=== PATIENT | female | born 1940 | race Caucasian/White ===

== ENCOUNTER 2021-08-06 09:22 | Inpatient (IN) ==
[2021-08-06] MEDS ORDERED: DILTIAZEM 50 MG/10 ML VIAL IV STA (10:14)
[2021-08-06 10:27] LABS: ABG Base Excess -2.3 MMOL/L (-2.5-2.5); ABG HCO3 22.5 MMOL/L (20-26); ABG Oxygen Saturation 97.3 % (95-100); ABG PCO2 34.7 MM HG (35-48); ABG PH 7.404 (7.35-7.45); ABG PO2 92.6 MM HG (80-95); ABG TCO2 18.9 MMOL/L (23-27)
[2021-08-06] MEDS: DILTIAZEM INJ 100 MG in SODIUM CHLORIDE 0.9% 100 ML IV SCH ×2 (10:29→19:42)
[2021-08-06] MEDS ORDERED: SODIUM CHLORIDE 0.9% 1,000 ML IV STA (10:32)
[2021-08-06 10:40] LABS: Basophils % 0.3 % (0.0-0.8); Eosinophils # 0.1 10*3/uL (0.0-0.87); Eosinophils % 0.6 % (0.00-10.9); Hematocrit 40.4 VOL% (35.7-47.0); Hemoglobin 13.1 GM/DL (12.0-16.0); Immature Granulocytes % 0.7 %; Immature Granulocytes Absolute 0.08 #; Lymphocytes # 3.3 10*3/uL (1.4-4.0); Lymphocytes % 30.7 % (21.3-54.2); Mean Corpuscular HGB Conc 32.4 GM/DL (32-36); Mean Corpuscular Volume 92.2 FL (87-102); Mean Platelet Volume 9.2 FL (9.6-12.0); Monocytes % 11.2 % (1.7-12.7); Neutrophils % 56.5 % (38.7-73.9); Platelet Count 491 T/CUMM (130-400); Red Blood Count 4.38 MC/CUMM (3.8-5.5); Red Cell Distribution Width 15.5 % (9.3-17.3); White Blood Count 10.9 T/CUMM (4-12)
[2021-08-06 11:02] LABS: Albumin 3.8 G/DL (3.4-5.0); Bilirubin,Total 0.5 MG/DL (0.20-1.00); Osmolality,Calculated 278.7 MOS/KG (273-304); Potassium 4.2 MMOL/L (3.5-5.1); Total Protein 6.9 G/DL (6.4-8.2)
[2021-08-06] MEDS ORDERED: METOPROLOL TARTRATE 5 MG/5 ML VIAL IV ONE (11:12)
[2021-08-06] MEDS ORDERED: PIPERACILLIN/TAZOBACTAM 3,375 MG in SODIUM CHLORIDE 0.9% 100 ML IV STA ×2 (11:16→11:17)
[2021-08-06] MEDS ORDERED: FUROSEMIDE 40 MG/4 ML VIAL IV STA (11:16)
[2021-08-06] MEDS ORDERED: METOPROLOL TARTRATE 5 MG/5 ML VIAL IV STA (11:17)
[2021-08-06] MEDS ORDERED: GLUCAGON 1 MG VIAL IM PRN (11:23)
[2021-08-06] MEDS ORDERED: ONDANSETRON 4 MG/2 ML VIAL IV PRN (11:24)
[2021-08-06] MEDS ORDERED: DEXTROSE 50% 25 GM/50 ML SYRINGE IV PRN (11:27)
[2021-08-06 11:39] LABS: Bilirubin,Urine Negative (Negative); Blood, Urine Negative (Negative); Glucose,Urine (UA) Negative (Negative); Hyaline Casts,Urine 8 /LPF (0-3); Ketones,Urine Negative (Negative); Mucus,Urine Occasional /LPF (Occasional); Nitrite,Urine Negative (Negative); Protein,Urine 100 MG/DL; RBC,Urine <1 /HPF (0-4); Urine Appearance CLEAR (Clear); Urine Color Amber (Yellow); Urine Specific Gravity 1.041 (1.001-1.035); Urine Urobilinogen < 2.0 EU/DL (0.2-1.0)
[2021-08-06 11:57] LABS: Thyroid Stimulating Hormone 4.23 uIU/ml (0.358-3.74)
[2021-08-06] MEDS ORDERED: cefTRIAXone 1,000 MG in SODIUM CHLORIDE 0.9% 100 ML IV SCH (12:00)
[2021-08-06] MEDS: ACETAMINOPHEN 325 MG TABLET PO PRN ×2 (12:14→20:08)
[2021-08-06] MEDS: ENOXAPARIN 100 MG/ML SYRINGE SUBCUT SCH (12:30)
[2021-08-06] MEDS ORDERED: AZITHROMYCIN INJ 500 MG in SODIUM CHLORIDE 0.9% 250 ML IV SCH (13:00)
[2021-08-06] MEDS: FUROSEMIDE 40 MG/4 ML VIAL IV SCH (17:20)
[2021-08-06] MEDS: ZALEPLON 5 MG CAPSULE PO PRN (20:06)
[2021-08-06] MEDS: guaiFENesin 200 MG/10 ML UDCUP PO PRN (20:44)
[2021-08-06] MEDS: PSYLLIUM POWDER 3.7 GM/PACK PO SCH (20:44)
[2021-08-07] MEDS: ACETAMINOPHEN 325 MG TABLET PO PRN ×5 (00:01→21:41)
[2021-08-07] MEDS: guaiFENesin 200 MG/10 ML UDCUP PO PRN ×4 (00:01→23:30)
[2021-08-07] MEDS: DILTIAZEM INJ 100 MG in SODIUM CHLORIDE 0.9% 100 ML IV SCH ×3 (02:30→10:30)
[2021-08-07 04:52] LABS: Basophils % 0.3 % (0.0-0.8); Eosinophils # 0.1 10*3/uL (0.0-0.87); Eosinophils % 0.9 % (0.00-10.9); Hematocrit 38.2 VOL% (35.7-47.0); Hemoglobin 12.2 GM/DL (12.0-16.0); Immature Granulocytes % 0.6 %; Immature Granulocytes Absolute 0.06 #; Lymphocytes # 2.7 10*3/uL (1.4-4.0); Lymphocytes % 28.2 % (21.3-54.2); Mean Corpuscular HGB Conc 31.9 GM/DL (32-36); Mean Corpuscular Volume 94.6 FL (87-102); Mean Platelet Volume 9.2 FL (9.6-12.0); Monocytes % 11.8 % (1.7-12.7); Neutrophils % 58.2 % (38.7-73.9); Platelet Count 431 T/CUMM (130-400); Red Blood Count 4.04 MC/CUMM (3.8-5.5); Red Cell Distribution Width 15.4 % (9.3-17.3); White Blood Count 9.6 T/CUMM (4-12)
[2021-08-07 05:13] LABS: Calcium 8.4 MG/DL (8.5-10.1); Osmolality,Calculated 284.1 MOS/KG (273-304); Potassium 3.3 MMOL/L (3.5-5.1); Risk Ratio 2.98; VLDL Cholesterol 17.8 MG/DL
[2021-08-07] MEDS: FUROSEMIDE 40 MG/4 ML VIAL IV SCH ×2 (07:58→16:55)
[2021-08-07] MEDS ORDERED: PSYLLIUM POWDER 3.7 GM/PACK PO SCH (09:00)
[2021-08-07] MEDS: GABAPENTIN 100 MG CAPSULE PO SCH ×2 (14:50→21:42)
[2021-08-07] MEDS: ENOXAPARIN 100 MG/ML SYRINGE SUBCUT SCH ×3 (14:51→23:30)
[2021-08-07] MEDS: METOPROLOL SUCCINATE XL 25 MG TABLET PO SCH ×2 (14:51→21:42)
[2021-08-07] MEDS: ZALEPLON 5 MG CAPSULE PO PRN (21:42)
[2021-08-07] MEDS: PSYLLIUM POWDER 3.7 GM/PACK PO SCH (21:43)
[2021-08-08] MEDS: ACETAMINOPHEN 325 MG TABLET PO PRN ×3 (03:26→17:02)
[2021-08-08 04:51] LABS: Basophils % 0.5 % (0.0-0.8); Eosinophils # 0.2 10*3/uL (0.0-0.87); Eosinophils % 1.7 % (0.00-10.9); Hematocrit 37.7 VOL% (35.7-47.0); Hemoglobin 11.9 GM/DL (12.0-16.0); Immature Granulocytes % 0.6 %; Immature Granulocytes Absolute 0.05 #; Lymphocytes # 2.6 10*3/uL (1.4-4.0); Lymphocytes % 29.3 % (21.3-54.2); Mean Corpuscular HGB Conc 31.6 GM/DL (32-36); Mean Corpuscular Volume 94.5 FL (87-102); Mean Platelet Volume 8.9 FL (9.6-12.0); Monocytes % 12.4 % (1.7-12.7); Neutrophils % 55.5 % (38.7-73.9); Platelet Count 417 T/CUMM (130-400); Red Blood Count 3.99 MC/CUMM (3.8-5.5); Red Cell Distribution Width 15.4 % (9.3-17.3); White Blood Count 8.8 T/CUMM (4-12)
[2021-08-08 05:05] LABS: Calcium 8.4 MG/DL (8.5-10.1); Osmolality,Calculated 283.1 MOS/KG (273-304); Potassium 3.2 MMOL/L (3.5-5.1)
[2021-08-08] MEDS: DILTIAZEM INJ 100 MG in SODIUM CHLORIDE 0.9% 100 ML IV SCH ×3 (07:31→22:16)
[2021-08-08] MEDS: POTASSIUM CHLORIDE 20 MEQ TABLET PO PRN ×4 (09:16→16:55)
[2021-08-08] MEDS: METOPROLOL SUCCINATE XL 25 MG TABLET PO SCH (09:17)
[2021-08-08] MEDS: GABAPENTIN 100 MG CAPSULE PO SCH ×3 (09:17→21:07)
[2021-08-08] MEDS: FUROSEMIDE 40 MG/4 ML VIAL IV SCH ×2 (10:54→16:55)
[2021-08-08] MEDS: DILTIAZEM 60 MG TABLET PO SCH ×3 (10:55→21:06)
[2021-08-08] MEDS: PSYLLIUM POWDER 3.7 GM/PACK PO SCH (21:05)
[2021-08-08] MEDS: APIXABAN 5 MG TABLET PO SCH (21:06)
[2021-08-08] MEDS: BISOPROLOL 5 MG TABLET PO SCH (21:06)
[2021-08-08] MEDS: guaiFENesin 200 MG/10 ML UDCUP PO PRN (21:10)
[2021-08-08] MEDS: ZALEPLON 5 MG CAPSULE PO PRN (21:17)
[2021-08-09] MEDS: ACETAMINOPHEN 325 MG TABLET PO PRN ×3 (00:30→12:30)
[2021-08-09 06:03] LABS: Basophils % 0.3 % (0.0-0.8); Eosinophils # 0.2 10*3/uL (0.0-0.87); Hematocrit 41.2 VOL% (35.7-47.0); Hemoglobin 12.6 GM/DL (12.0-16.0); Immature Granulocytes % 0.5 %; Immature Granulocytes Absolute 0.04 #; Lymphocytes # 3.2 10*3/uL (1.4-4.0); Mean Corpuscular HGB Conc 30.6 GM/DL (32-36); Mean Corpuscular Volume 96.5 FL (87-102); Mean Platelet Volume 8.9 FL (9.6-12.0); Monocytes % 11.8 % (1.7-12.7); Neutrophils % 48.4 % (38.7-73.9); Platelet Count 436 T/CUMM (130-400); Red Blood Count 4.27 MC/CUMM (3.8-5.5); Red Cell Distribution Width 15.7 % (9.3-17.3); White Blood Count 8.7 T/CUMM (4-12)
[2021-08-09 06:16] LABS: Calcium 8.9 MG/DL (8.5-10.1); Potassium 4.2 MMOL/L (3.5-5.1)
[2021-08-09] MEDS: FUROSEMIDE 40 MG/4 ML VIAL IV SCH ×2 (09:07→15:48)
[2021-08-09] MEDS: BISOPROLOL 5 MG TABLET PO SCH ×2 (09:35→21:26)
[2021-08-09] MEDS: GABAPENTIN 100 MG CAPSULE PO SCH ×3 (09:36→21:26)
[2021-08-09] MEDS: DILTIAZEM CD 120 MG CAPSULE PO SCH ×2 (09:36→21:26)
[2021-08-09] MEDS: APIXABAN 5 MG TABLET PO SCH ×2 (09:36→21:26)
[2021-08-09] MEDS: guaiFENesin 200 MG/10 ML UDCUP PO PRN ×2 (12:32→21:26)
[2021-08-09] MEDS: DILTIAZEM INJ 100 MG in SODIUM CHLORIDE 0.9% 100 ML IV SCH (18:13)
[2021-08-09] MEDS: PSYLLIUM POWDER 3.7 GM/PACK PO SCH (21:25)
[2021-08-09] MEDS: ZALEPLON 5 MG CAPSULE PO PRN (21:30)
[2021-08-10 05:12] LABS: Basophils % 0.6 % (0.0-0.8); Eosinophils # 0.2 10*3/uL (0.0-0.87); Eosinophils % 2.5 % (0.00-10.9); Hematocrit 39.9 VOL% (35.7-47.0); Hemoglobin 12.2 GM/DL (12.0-16.0); Immature Granulocytes % 0.6 %; Immature Granulocytes Absolute 0.04 #; Lymphocytes # 2.8 10*3/uL (1.4-4.0); Lymphocytes % 39.1 % (21.3-54.2); Mean Corpuscular HGB Conc 30.6 GM/DL (32-36); Mean Corpuscular Volume 97.1 FL (87-102); Mean Platelet Volume 8.8 FL (9.6-12.0); Monocytes % 10.9 % (1.7-12.7); Neutrophils % 46.3 % (38.7-73.9); Platelet Count 396 T/CUMM (130-400); Red Blood Count 4.11 MC/CUMM (3.8-5.5); Red Cell Distribution Width 15.4 % (9.3-17.3); White Blood Count 7.1 T/CUMM (4-12)
[2021-08-10 05:45] LABS: Calcium 9.4 MG/DL (8.5-10.1); Osmolality,Calculated 285.1 MOS/KG (273-304); Potassium 4.2 MMOL/L (3.5-5.1)
[2021-08-10] MEDS: ACETAMINOPHEN 325 MG TABLET PO PRN (06:17)
[2021-08-10] MEDS: FUROSEMIDE 40 MG/4 ML VIAL IV SCH (09:14)
[2021-08-10] MEDS: APIXABAN 5 MG TABLET PO SCH (10:00)
[2021-08-10] MEDS: BISOPROLOL 5 MG TABLET PO SCH (10:00)
[2021-08-10] MEDS: GABAPENTIN 100 MG CAPSULE PO SCH (10:00)
[2021-08-10] MEDS: DILTIAZEM CD 120 MG CAPSULE PO SCH (10:01)
[2021-08-10 12:26] VITALS: BP 129/67
== END 2021-08-10 14:45 | disposition home health service (06) | DRG 308 ==
LOC: N.ED 09:22 → SUATTDRO 11:23 → N.EDINP 11:23 → N.TELEN 16:06
PROVIDERS: ADMIT Internal Medicine; ATTEND Emergency Medicine